=== PATIENT | female | born 1955 | race Caucasian/White ===

== ENCOUNTER 2016-12-07 14:46 | Observation (INO) | payer BC ==
[~2016-12-07] VITALS: Ht 165.1 cm; Wt 103.9 kg
[~2016-12-07 14:46] MED LIST: ALBUTEROL17 GM; AVALIDE 300/1 TABLET PO; BENADRYL ALLERG25 MG PO; CATAPRES0.1 MG PO; DUONEB 2.5-0.5 M3 ML AEROSOL; ECOTRIN325 MG PO; FLONASE16 G1 BOTH NARES; FOSAMAX70 M1; HYDROCODON-ACE1 EAC7 PO; LEVAQUIN750 MG PO; LEVOTHROID200 MCG; LIPITOR80 MG PO; PLAVIX75 MG PO; PRINZIDE 20-251 EACH; PROTONIX40 MG; PULMICORT0.25 MG/1; PULMOCARE1000 ML; RHINOCORT ALL8.43 ML BOTH NARES; SINGULAIR10 MG; TEKTURNA300 MG PO; VITAMIN D50000 UNI1; ZETIA10 MG
[2016-12-07 15:50] LABS: MCH 30.2 PG (29.0-34.0); MCV 91.5 FL (83-99); PLATELET COUNT 248 K/uL (156-360); RBC DIS.WIDTH-CV 13.7 % (11.8-14.6); RBC DIS.WIDTH-SD 46.5 % (39-53); RED BLOOD COUNT 4.37 M/uL (3.80-5.20); WHITE BLOOD COUNT 11.6 K/uL (4.1-10.2)
[2016-12-07 16:01] LABS: CHLORIDE 103 mEq/L (99-109); POTASSIUM 3.3 mEq/L (3.7-5.4); SODIUM 142 mEq/L (136-147)
[2016-12-07 16:03] LABS: GLUCOSE 108 mg/dL (70-99)
[2016-12-07 16:05] LABS: ANION GAP 15 MEQ/L (2-14)
[2016-12-07 16:07] LABS: GFR ESTIMATE (CALCULATED) 54 mL/min/
[2016-12-07 16:08] LABS: UREA NITROGEN (BUN) 18 mg/dL (9-23)
[2016-12-07] MEDS ORDERED: SYNTHROID200 MCG PO (19:47)
[2016-12-07] MEDS ORDERED: SYNTHROID50 MCG PO (19:47)
[2016-12-07] MEDS ORDERED: VITAMIN D31000 UNIT PO (19:50)
[2016-12-07] MEDS ORDERED: CLARITIN,ALAVAR10 MG PO (19:50)
[2016-12-07] MEDS ORDERED: PREVACID15 MG PO (19:51)
[2016-12-07] MEDS ORDERED: VENTOLIN HFA18 GM IH (19:52)
[2016-12-07] MEDS ORDERED: CALCIUM500 M4 PO (19:52)
[2016-12-07 20:07] VITALS: BP 150/68
[2016-12-07 22:56] LABS: INFLUENZA A VIRAL ANTIGEN NEGATIVE; INFLUENZA B VIRAL ANTIGEN NEGATIVE
[2016-12-07 23:40] VITALS: BP 153/67
[2016-12-08 03:47] VITALS: BP 140/63
[2016-12-08 05:35] LABS: MCH 30.7 PG (29.0-34.0); MCHC 32.9 G/DL (30.0-36.0); MCV 93.4 FL (83-99); MEAN PLAT.VOLUME 11.2 uM^3 (9.5-12.4); PLATELET COUNT 270 K/uL (156-360); RBC DIS.WIDTH-SD 47.7 % (39-53); RED BLOOD COUNT 4.07 M/uL (3.80-5.20); WHITE BLOOD COUNT 8.9 K/uL (4.1-10.2)
[2016-12-08 05:59] LABS: ANION GAP 16 MEQ/L (2-14); CHLORIDE 102 MEQ/L (99-109); GFR ESTIMATE (CALCULATED) 49 mL/min/; SAMPLE HEMOLYSIS CHECK 0; SAMPLE ICTERIC CHECK 0; SAMPLE LIPEMIA CHECK 0; SODIUM 140 MEQ/L (136-147); UREA NITROGEN (BUN) 22 mg/dL (9-23)
[2016-12-08 06:05] LABS: GLUCOSE 201 mg/dL (70-99); POTASSIUM 4.4 MEQ/L (3.7-5.4)
[2016-12-08 11:23] VITALS: BP 147/67
[2016-12-08 15:12] VITALS: BP 130/60
[2016-12-08 18:01] VITALS: BP 160/76
[2016-12-09 00:05] VITALS: BP 131/58
[2016-12-09 03:58] VITALS: BP 146/65
[2016-12-09 05:49] LABS: EOSINOPHIL (%) 0.1 % (0-5); HEMATOCRIT 38.8 % (36.0-46.0); IMMATURE GRANULOCYTE (%) 0.9 % (0.0-0.7); IMMATURE GRANULOCYTE COUNT 0.1 K/uL; INSTRUMENT ABS NEUTROPHIL CT 11.2 K/uL; LYMPHOCYTE COUNT 1.4 K/uL (1.0-2.8); MCH 30.9 PG (29.0-34.0); MCHC 33.2 G/DL (30.0-36.0); MCV 92.8 FL (83-99); MEAN PLAT.VOLUME 11.3 uM^3 (9.5-12.4); MONOCYTE (%) 4.8 % (3-12); MONOCYTE COUNT 0.6 K/uL (0-0.8); NEUTROPHIL (%) 83.4 % (45-76); NEUTROPHIL COUNT 11.2 K/uL (1.8-6.4); PLATELET COUNT 306 K/uL (156-360); RBC DIS.WIDTH-CV 14.1 % (11.8-14.6); RBC DIS.WIDTH-SD 47.9 % (39-53); RED BLOOD COUNT 4.18 M/uL (3.80-5.20); WHITE BLOOD COUNT 13.4 K/uL (4.1-10.2)
[2016-12-09 06:57] LABS: ANION GAP 13 MEQ/L (2-14); CHLORIDE 102 MEQ/L (99-109); GFR ESTIMATE (CALCULATED) 54 mL/min/; GLUCOSE 137 mg/dL (70-99); POTASSIUM 4.2 MEQ/L (3.7-5.4); SAMPLE HEMOLYSIS CHECK 0; SAMPLE ICTERIC CHECK 0; SAMPLE LIPEMIA CHECK 0; SODIUM 139 MEQ/L (136-147); UREA NITROGEN (BUN) 27 mg/dL (9-23)
[2016-12-09 07:14] VITALS: BP 179/76
[2016-12-09 12:40] VITALS: BP 150/66
[2016-12-09] MEDS ORDERED: VENTOLIN HFA18 GM IH (13:44)
[2016-12-09] MEDS ORDERED: PREDNISONE20 MG PO (13:44)
[2016-12-09] MEDS ORDERED: FAMOTIDINE20 MG PO (13:44)
[2016-12-09] MEDS ORDERED: DUONEB 2.5-0.5 M3 ML AEROSOL (13:44)
== END 2016-12-09 15:45 | disposition home or self-care (01) ==
LOC: EME 14:46 → EDOF 19:11 → 5WEST 19:11 → ENRESERV 19:12 → 5WEST 20:00
PROVIDERS: Emergency Medicine; Internal Medicine
DX: J45.41 Moderate persistent asthma with (acute) exacerbation (principal); J96.01 Acute respiratory failure with hypoxia; E87.6 Hypokalemia; L27.1 Localized skin eruption due to drugs and medicaments taken internally; T36.0X5A Adverse effect of penicillins, initial encounter; R73.03 Prediabetes; E03.8 Other specified hypothyroidism; E06.3 Autoimmune thyroiditis; E66.9 Obesity, unspecified; Z68.38 Body mass index [BMI] 38.0-38.9, adult; E78.00 Pure hypercholesterolemia, unspecified; Z86.73 Personal history of transient ischemic attack (TIA), and cerebral infarction without residual deficits; I10 Essential (primary) hypertension; K21.9 Gastro-esophageal reflux disease without esophagitis; Z79.82 Long term (current) use of aspirin; Z79.02 Long term (current) use of antithrombotics/antiplatelets; Z88.0 Allergy status to penicillin; Z91.041 Radiographic dye allergy status
CPT/HCPCS: 70486; 71010; 71250; 80048; 85025; 85027; 87502; 94640; 94640 76; 94644; 94799; 99202; 99281; 99285; G0378; J1200; J1644; J1885; J2930; J3475